=== PATIENT | female | born 1955 | race Caucasian/White ===

== ENCOUNTER → 2017-02-12 | Outpatient (CLI) | payer BC ==
[~2017-02-12] MED LIST: CHOL10003 PO; FAMO40TA PO; FENO145T10 PO; KRIL1CAP PO; METO25TA27 PO; MULT-543 PO; coq10; vit b 12
--- NOTE | 2017-02-13 10:39 | DI ---
Indication: ITS.REASON: N85.2 Hypertrophy of uterus PROCEDURE: US PELVIC NON OB W/TRANS VAG: Encounter: Initial Comparison: Pelvic ultrasound dated November 16, 2012 FINDINGS: Transvaginal and transabdominal pelvic imaging was performed. The uterus measures 5.5 x 3 x 4.2 cm. The parenchyma is heterogeneous with at least one fibroid measuring 1.5 x 1.6 x 1.4 cm in size. The endometrial stripe measures 11 mm in thickness. There is no evidence of focal endometrial mass. Both ovaries are identified. The right ovary measures 2.3 x 1.3 x 1.4 cm. The left ovary is enlarged and hyperemic measures 3.8 x 2.7 x 3.3 cm. There are two nearly isoechoic lesion seen on the left ovary, one measuring 2 cm and the other 2.1 cm in maximal diameter. There are no abnormal adnexal masses detected. There is adjacent free fluid near the left ovary. IMPRESSION: 1. Continued abnormal endometrial thickness of 11 mm. Although this is reportedly present dating back to 2011 I would still recommend a endometrial biopsy to exclude neoplasm. 2. Abnormal left ovary which could be due to benign or malignant tumor. Surgical consultation is recommended. Contrast-enhanced pelvic MRI may be helpful for further evaluation. 3. Uterine fibroid. .
== END ==
LOC: IMA 07:32
PROVIDERS: ATTEND Nurse Practitioner
DX: N85.2 Hypertrophy of uterus (principal); D25.9 Leiomyoma of uterus, unspecified; N83.9 Noninflammatory disorder of ovary, fallopian tube and broad ligament, unspecified